=== PATIENT | male | born 1995 | race Asian ===

== ENCOUNTER 2024-12-14 18:07 | Emergency (ER) | payer OTHER ==
[~2024-12-14] VITALS: Ht 167.6 cm; Wt 111.1 kg
[2024-12-14 20:59] VITALS: BP 151/87; TEMP 98.5; O2SAT 100
== END 2024-12-14 21:45 | disposition home or self-care (01) ==
LOC: M ED 18:07
DX: S92.425A Nondisplaced fracture of distal phalanx of left great toe, initial encounter for closed fracture (principal); S90.212A Contusion of left great toe with damage to nail, initial encounter; W20.8XXA Other cause of strike by thrown, projected or falling object, initial encounter; Y92.39 Other specified sports and athletic area as the place of occurrence of the external cause; Y93.9 Activity, unspecified; Y99.9 Unspecified external cause status